=== PATIENT | male | born 1970 | race Caucasian/White ===

== ENCOUNTER 2017-01-02 10:53 | Emergency (ER) | payer OTHER ==
--- NOTE | 2017-01-02 13:28 | RAD ---
INDICATION: Low back pain status post injury. COMPARISON: Comparison is made with a prior chest x-ray study from February 13, 2012. TECHNIQUE: 5 views of the lumbar spine were obtained including lateral, oblique, AP and a coned-down lateral view of the lumbar sacral junction. FINDINGS: There is mild anterior wedging of the L1 vertebral body which is unchanged from the prior chest x-ray study consistent with a mild chronic compression fracture. No acute fracture is seen. There is mild to moderate degenerative disc disease at the L1-L2 and L2-L3 levels. IMPRESSION: NO EVIDENCE FOR ACUTE FRACTURE.
[2017-01-02] MEDS ORDERED: Ketorolac INJ* 60 MG/2 ML VIAL IM ONE (13:48)
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
[2017-01-02 14:26] VITALS: BP 132/92
== END 2017-01-02 14:25 | disposition home or self-care (01) ==
LOC: ED 10:53
DX: S39.012A Strain of muscle, fascia and tendon of lower back, initial encounter (principal); M54.5 Low back pain; V49.9XXA Car occupant (driver) (passenger) injured in unspecified traffic accident, initial encounter; Y93.9 Activity, unspecified; Y92.9 Unspecified place or not applicable; Y99.9 Unspecified external cause status; F17.210 Nicotine dependence, cigarettes, uncomplicated
CPT/HCPCS: 72110; 96372; 99282; J1885